=== PATIENT | female | born 1990 | race Caucasian/White ===

== ENCOUNTER 2018-07-19 21:27 | Emergency (ER) | payer BC ==
[~2018-07-19] VITALS: Ht 177.8 cm; Wt 90.7 kg
[2018-07-19 22:06] LABS: BASO % 0.1 % (0.0-1.0); BILIRUBIN 1+ (NEGATIVE); BLOOD 1+ (NEGATIVE); CLARITY CLOUDY (CLEAR); COLOR YELLOW (YELLOW); EOS # 0.1 10*3/uL (0.0-0.4); EOS % 0.9 % (1.0-4.0); GLUCOSE NEGATIVE (NEGATIVE); HEMATOCRIT 47.1 % (37.0-47.0); KETONE NEGATIVE (NEGATIVE); LEUKO ESTERASE TRACE (NEGATIVE); LYMPH # 1.2 10*3/uL (1.3-4.4); MEAN CELL VOLUME 90.1 fl (81.0-99.0); MEAN CORPUSCULAR HGB 30.6 pg (27.0-31.0); MEAN PLATELET VOLUME 9.9 fl (9.6-12.3); MONO # 0.6 10*3/uL (0.1-1.0); MONO % 4.4 % (3.0-9.0); NEUT # 11.2 10*3/uL (2.3-7.9); NEUT % 85.3 % (47.0-73.0); NITRITE NEGATIVE (NEGATIVE); PH 5.5 (5.0-9.0); PLATELET COUNT AUTOMATED 218 10*3/uL (130-400); RED BLOOD COUNT 5.23 10*6/uL (4.10-5.10); RED CELL DISTRI WIDTH 11.9 % (0-14.5); SPECIFIC GRAVITY >= 1.030 (1.005-1.030); UROBILINOGEN 0.2 E.U./dl (0.2-1.0); WHITE BLOOD COUNT 13.1 10*3/uL (4.8-10.8)
[2018-07-19 22:12] LABS: BACTERIA 3+; EPITHELIAL CELLS 16-20; WBC 16-20 wbc/hpf (0-5)
[2018-07-19 22:26] LABS: ALBUMIN 4.2 gm/dl (3.1-4.5); ALKALINE PHOSPHATASE 78 U/L (45-117); BUN 18 mg/dl (7-24); CHLORIDE 107 mmol/L (98-107); CREATININE 0.68 mg/dL (0.55-1.02); LIPASE 109 U/L (73-393); POTASSIUM 3.7 mmol/L (3.5-5.1); SGOT/AST 18 IU/L (3-35); SGPT/ALT 43 U/L (12-78); SODIUM 140 mmol/L (136-145); TOTAL PROTEIN 7.8 gm/dL (6.4-8.2)
[2018-07-19 22:29] LABS: B-hCG (QUALITATIVE) NEGATIVE (NEGATIVE)
[2018-07-19] MEDS ORDERED: ZOFRAN4 MG PO (23:06)
[2018-07-19] MEDS ORDERED: AMINOPHYLLIN200 MG PO (23:06)
== END 2018-07-19 23:12 | disposition home or self-care (01) ==
LOC: ED 21:27
PROVIDERS: Physician Assistant
DX: K52.9 Noninfective gastroenteritis and colitis, unspecified (principal); N39.0 Urinary tract infection, site not specified; Z88.0 Allergy status to penicillin

== ENCOUNTER 2020-06-10 08:55 | Emergency (ER) | payer BC ==
[~2020-06-10] VITALS: Ht 175.2 cm; Wt 104.3 kg
[~2020-06-10 08:55] MED LIST: AMINOPHYLLIN200 MG PO; ZOFRAN4 MG PO
[2020-06-10] MEDS ORDERED: MELOXICAM15 MG PO (09:08)
[2020-06-10] MEDS ORDERED: CEPHALEXIN500 M1 PO (10:15)
== END 2020-06-10 10:16 | disposition home or self-care (01) ==
LOC: ED 08:55
DX: S91.202A Unspecified open wound of left great toe with damage to nail, initial encounter (principal); Z88.0 Allergy status to penicillin; Z79.899 Other long term (current) drug therapy; W22.8XXA Striking against or struck by other objects, initial encounter; Y93.89 Activity, other specified; Y92.89 Other specified places as the place of occurrence of the external cause; Y99.8 Other external cause status